=== PATIENT | female | born 1985 | race Caucasian/White ===

== ENCOUNTER 2018-12-07 18:43 | Emergency (ER) | payer OTHER ==
[2018-12-07 18:56] VITALS: BP 101/68; PULSE 91; BMI 29.2
--- NOTE | 2018-12-07 19:19 | PDOC ---
History of Present Illness - General Chief Complaint: Shortness of Breath Stated Complaint: SHORTNESS OF BREATH Time Seen by Provider: 12/07/18 19:18 History Source: Patient Exam Limitations: No Limitations - History of Present Illness Initial Comments: Pt is a 33 yo F, with PMH of multiple sclerosis, who is presenting with complaints of SOB which has worsened over the past month, with associated nasal congestion and dry cough x3 days. Pt states since starting steroid treatments for her steroids x2 months ago, she has noticed more SOB on exertion. It has worsened over the past week, and over the past 2 days, the pt states she feels dyspneic and SOB even when transferring from the bed to her wheelchair, which is unusual for her. Her father and mother have also had "a cold" with similar dry cough and congestion. The pt has not had any leg swelling, recent surgeries , or travel. Pt does say that she started a new steroid medication ~2 months ago (ocrevust) and has gained ~30 lbs since then. She normally has different reactions to new medications, including skin flushing and SOB. Pt denies any fevers/chills, headache, vision changes, syncope, chest pain, palpitations, nausea/vomiting, abdominal pain, urinary symptoms, diarrhea/constipation, or leg swelling. Social: Pt denies any cigarette, alcohol, or drug use. Pt denies any recent travel or sick contacts. Surgical: cholecystectomy. Family: no relevant history. 12/07/18 20:50 Past History - Travel Traveled outside of the country in the last 30 days: No Close contact w/someone who was outside of country & ill: No - Past Medical History Allergies/Adverse Reactions: Allergies Allergy/AdvReac Type Severity Reaction Status Date / Time Sulfa (Sulfonamide Allergy Unknown Verified 12/07/18 18:56 Antibiotics) Home Medications: Ambulatory Orders NK [No Known Home Medication] 09/09/15 COPD: No Diabetes: No HTN: No Other medical history: multiple sclerosis - Surgical History Abdominal Surgery: Yes (jerry) Cholecystectomy: Yes - Immunization History Immunization Up to Date: Yes - Suicide/Smoking/Psychosocial Hx Smoking History: Never smoked Hx Alcohol Use: No Drug/Substance Use Hx: No Substance Use Type: None Review of Systems - Review of Systems Able to Perform ROS?: Yes Is the patient limited [place] proficient: No Constitutional: Yes: Weakness (chronic with MS), Weight Stable. No: Chills, Diaphoresis, Fever, Loss of Appetite, Night Sweats HEENTM: Yes: See HPI, Nose Congestion. No: Blurred Vision, Recent change in vision, Throat Pain, Throat Swelling, Difficulty Swallowing Respiratory: Yes: See HPI, Cough (dry cough), Shortness of Breath, SOB with Exertion, SOB at Rest. No: Orthopnea, Wheezing, Productive cough, Hemoptysis Cardiac (ROS): No: Chest Pain, Edema, Irregular Heart Rate, Lightheadedness, Palpitations, Syncope, Chest Tightness ABD/GI: No: Constipated, Diarrhea, Nausea, Poor Appetite, Poor Fluid Intake, Vomiting : No: Burning, Dysuria, Frequency, Pain, Urgency Musculoskeletal: Yes: Muscle Weakness (MS). No: Back Pain, Joint Pain Integumentary: No: Rash Neurological: Yes: Pre-Existing Deficit, Weakness (MS), Unsteady Gait. No: Headache, Numbness, Tingling, Tremors, Ataxia, Dizziness Psychiatric: No: Sleep Pattern Change, Change in Appetite Endocrine: Yes: Unexplained Weight Gain (30 lbs over past 2 months since starting steroid treatments). No: Increased Urine, Change in Weight Hematologic/Lymphatic: No: Anemia, Blood Clots, Easy Bleeding, Easy Bruising All Other Systems: Reviewed and Negative *Physical Exam - Vital Signs Last Vital Signs Temp Pulse Resp BP Pulse Ox 91 H 18 101/68 98 12/07/18 18:45 12/07/18 18:45 12/07/18 18:45 12/07/18 18:45 - Physical Exam General Appearance: Yes: Nourished, Appropriately Dressed. No: Apparent Distress HEENT: positive: EOMI, TIAGO, Normal ENT Inspection, Normal Voice, Pharynx Normal , Nasal Congestion, Hearing Grossly Normal. negative: Scleral Icterus (R), Scleral Icterus (L), Pharyngeal Erythema, Tonsillar Exudate, Tonsillar Erythema , Rhinorrhea, Sinus Tenderness Neck: positive: Trachea midline, Normal Thyroid, Supple. negative: Tender, Rigid, Decreased range of motion, Lymphadenopathy (R), Lymphadenopathy (L) Respiratory/Chest: positive: Lungs Clear, Normal Breath Sounds. negative: Chest Tender, Respiratory Distress, Accessory Muscle Use, Decreased Breath Sounds, Crackles, Wheezing Cardiovascular: positive: Regular Rhythm, Regular Rate, S1, S2. negative: Edema , JVD, Murmur Vascular Pulses: Carotid (R): 4+, Carotid (L): 4+ Gastrointestinal/Abdominal: positive: Normal Bowel Sounds, Flat, Soft. negative : Tender, Organomegaly, Pulsatile Mass, Distended, Guarding, Rebound Rectal Exam: positive: deferred Lymphatic: negative: Adenopathy, Tenderness Musculoskeletal: positive: Normal Inspection. negative: CVA Tenderness Extremity: positive: Normal Capillary Refill, Normal Inspection, Normal Range of Motion, Pelvis Stable. negative: Tender Integumentary: positive: Normal Color, Dry, Warm. negative: Jaundice, Clammy, Diaphoresis, Rash Neurologic: positive: bight maker II-XII NML intact, Fully Oriented, Alert, Normal Mood/ Affect, Normal Response, Other (muscle weakness in legs due to MS (chronic)). negative: Motor Strength 5/5 Moderate Sedation - Procedure Monitoring Vital Signs: Procedure Monitoring Vital Signs Temperature Pulse Rate 91 H 12/07/18 18:45 Respiratory Rate 18 12/07/18 18:45 Blood Pressure 101/68 12/07/18 18:45 O2 Sat by Pulse Oximetry (%) 98 12/07/18 18:45 Medical Decision Making - Medical Decision Making Pt was seen at bedside, also will be seen by attending Dr. Almaraz. Pt presenting with complaints of SOB which has worsened over the past month, with associated nasal congestion and dry cough x3 days. Pt states since starting steroid treatments for her steroids x2 months ago, she has noticed more SOB on exertion. It has worsened over the past week, and over the past 2 days, the pt states she feels dyspneic and SOB even when transferring from the bed to her wheelchair, which is unusual for her. Her father and mother have also had "a cold" with similar dry cough and congestion. The pt has not had any leg swelling , recent surgeries, or travel. Pt denies any fevers/chills, headache, vision changes, syncope, chest pain, palpitations, nausea/vomiting, abdominal pain, urinary symptoms, diarrhea/constipation, or leg swelling. Afebrile, O2 sat 98% on RA. PE showed clear heart and lung sounds, no crackles, no wheezes, no focal diminished areas. Pt speaking in full sentences, does not appear SOB or dyspneic on exam. No abdominal tenderness. No b/l pitting edema or leg swelling. Decreased strength in b/l LE due to MS (Chronic). Considering viral URI vs pneumonia vs progression of MS. Minimal concern for PE as pt not tachycardic, saturating well on RA. Ordered work-up including chest x-ray. Provided duoneb treatment for improvement of SOB. Will continue to reassess pt and monitor for symptomatic improvement. 12/07/18 20:43 *DC/Admit/Observation/Transfer Diagnosis at time of Disposition: SOB (shortness of breath) - Discharge Dispostion Disposition: HOME Condition at time of disposition: Improved Decision to Admit order: No - Referrals Referrals: Marta Reese [Primary Care Provider] - - Patient Instructions Printed Discharge Instructions: DI for Shortness of Breath Additional Instructions: You were seen in the ER today for shortness of breath. The results of your chest x-ray today was normal. Please follow-up with your primary care doctor and neurologist within 1-2 days to discuss your visit and make sure your symptoms have improved. Please return to the ER if you have any worsening shortness of breath, productive cough, development of fevers or chills, loss of consciousness, inability to tolerate food or fluids, or any other concerns. - Post Discharge Activity
[2018-12-07] MEDS ORDERED: ALBUTEROL SO4 2.5/IPRATROPIUM 0.5 INH SOL 3 ML VIAL.NEB. NEB ONE ×2 (19:47→20:33)
[2018-12-07 19:48] VITALS: TEMP 97.1
--- NOTE | 2018-12-07 19:57 | PDOC ---
Attending Attestation - Resident Resident Name: DaleEvelin - ED Attending Attestation I have performed the following: I have examined & evaluated the patient, The case was reviewed & discussed with the resident, I agree w/resident's findings & plan, Exceptions are as noted - HPI HPI: 12/07/18 19:57 33-year-old female with history of multiple sclerosis presents because of shortness of breath off-and-on for the past month that she feels is worsening History of present illness she has also had a dry cough recently - Physicial Exam PE: 12/07/18 19:58 petite 33 yo female is walking with assistance of her parents to the bathroom head ncat eyes valentin eomi neck supple cvs [id number] lungs cta b/l abd no rebound,no guarding ext no edema skin warm and dry neuro alert and conversant, lower extremity weakness, uses wheelchair or assistance to ambulate - Medical Decision Making 12/08/18 02:01 pt felt better after a resp tx she recently was started on a new medication for her MS and her specialist told her she would feel sob initially but that this was a side effect the would resolve pt denies fever,cough 12/08/18 02:04 lungs cta b/l she does not have substernal chest pain ekg no ischamia cxr napd
== END 2018-12-07 21:46 | disposition home or self-care (01) ==
LOC: JER 18:43
PROC: 3E0F7GC Introduction of Other Therapeutic Substance into Respiratory Tract, Via Natural or Artificial Opening (ICD-10-PCS; principal; 2018-12-07)
DX: R06.02 Shortness of breath (principal)
CPT/HCPCS: 71045-TC-FY; 84703; 94640; 99282-25